=== PATIENT | female | born 1980 | race Caucasian/White ===

== ENCOUNTER 2021-10-12 17:13 | Inpatient (IN) ==
[2021-10-12] MEDS ORDERED: Lactated Ringers 1000 ml BAG 1,000 ML IV ONE (17:31)
[2021-10-12 18:10] LABS: Hematocrit 38 % (35-47); Hemoglobin 12.7 g/dL (12.0-16.0); Mean Corpuscular HGB Conc 33 g/dL (31-36); Mean Corpuscular Hemoglobin 28 pg (27-31); Mean Corpuscular Volume 85 fL (80-97); Mean Platelet Volume 8.1 fL (7.4-10.4); Platelet Count 187 10^3/uL (150-450); Red Blood Count 4.49 10^6 /uL (3.70-4.87); Red Cell Distribution Width 14 % (10-15)
[2021-10-12 18:13] LABS: ABS Lymphocytes 0.7 10^3/ul (1.0-4.8); ABS Monocytes 0.6 10^3/ul (0-0.8); ABS Neutrophils 7.6 10^3/ul (1.5-7.7); Eosinophil % 0.2 %; Lymphocyte % 8.2 %
[2021-10-12 18:48] LABS: Albumin 3.9 g/dL (3.2-5.2); Calcium 9.2 mg/dL (8.6-10.3); Globulin 2.6 g/dL (2-4); Total Protein 6.5 g/dL (6.4-8.9); eGFR CKD-EPI 86.9 (>60)
[2021-10-12 18:49] LABS: Albumin/Globulin Ratio 1.5 (1-3); C Reactive Protein 287.75 mg/L (<8.01); Total Bilirubin 0.3 mg/dL (0.2-1.0)
[2021-10-12] MEDS ORDERED: Albuterol/Ipratropium NEB.SOL (2.5/0.5 MG) 3 ML NEB.SOLN INH ONE ×2 (19:27→20:51)
[2021-10-12] MEDS ORDERED: Levofloxacin 500 MG IVPREMIX 500 MG/100 ML BAG IVPB ONE (19:46)
[2021-10-12] MEDS ORDERED: cefTRIAXone 1 gm/50 mL D5W 1 GM/50 ML BAG IV ONE (19:46)
[2021-10-12] MEDS ORDERED: Dexamethasone IV 10 MG in NS 0.9% 50 ML 50 ML IVPB ONE (20:49)
[2021-10-12] MEDS ORDERED: Albuterol HFA INHALER 8 gm MDI INH ONE (20:49)
[2021-10-12 21:48] LABS: Urine Appearance Cloudy; Urine Bilirubin Negative (Negative); Urine Blood 3+ (Negative); Urine Color Yellow; Urine Glucose Negative (Negative); Urine Ketones Negative (Negative); Urine Nitrite Negative (Negative); Urine Protein 2+(100 mg/dL) (Negative); Urine Specific Gravity 1.009 (1.002-1.030); Urine Urobilinogen Negative (Negative)
[2021-10-12 21:51] LABS: Urine Bacteria Absent (Absent); Urine Red Blood Cell 3+(>10/hpf) (Absent); Urine Squamous Epithelial Cell Present (Absent); Urine White Blood Cell 3+(>20/hpf) (Absent)
[2021-10-12] MEDS ORDERED: Iohexol 350 (CONTRAST) 500 ML MDV IV ONE (22:20)
[2021-10-12 22:31] LABS: CKMB ng/mL 2.4 ng/mL (0.6-6.3)
[2021-10-12 22:58] LABS: High Sensitivity Troponin 1 Hr 8 pg/mL (<15)
[2021-10-13] MEDS ORDERED: Lactated Ringers 1000 ml BAG 1,000 ML IV ONE (00:24)
[2021-10-13] MEDS ORDERED: DOXYcycline IV 100 MG in NS 0.9% 250 ML IVPB ONE (01:00)
[2021-10-13 05:41] LABS: Hematocrit 37 % (35-47); Mean Corpuscular HGB Conc 33 g/dL (31-36); Mean Corpuscular Hemoglobin 28 pg (27-31); Mean Corpuscular Volume 85 fL (80-97); Mean Platelet Volume 8.2 fL (7.4-10.4); Platelet Count 176 10^3/uL (150-450); Red Blood Count 4.32 10^6 /uL (3.70-4.87); Red Cell Distribution Width 14 % (10-15); White Blood Count 7.1 10^3/uL (3.5-10.8)
[2021-10-13 06:00] LABS: ABS Lymphocytes 0.9 10^3/ul (1.0-4.8); ABS Monocytes 0.4 10^3/ul (0-0.8); ABS Neutrophils 5.7 10^3/ul (1.5-7.7); Eosinophil % 0.1 %; Lymphocyte % 12.8 %; Nucleated Red Blood Cells % 0.1
[2021-10-13] MEDS ORDERED: methylPREDNISolone SOD SUCC 125 mg 2 ML VIAL IV SCH (06:00)
[2021-10-13 06:22] LABS: Calcium 8.2 mg/dL (8.6-10.3); eGFR CKD-EPI 117.5 (>60)
[2021-10-13 06:37] LABS: HIV 4th Generation Nonreactive (Nonreactive)
[2021-10-13 07:16] LABS: C Reactive Protein 188.32 mg/L (<8.01)
[2021-10-13] MEDS ORDERED: DULoxetine DR 60 mg CAP PO SCH (09:00)
[2021-10-13] MEDS ORDERED: DULoxetine DR 60 mg CAP PO ONE (09:00)
[2021-10-13] MEDS ORDERED: Guaifenesin/Pseudo 600/60(NF) TAB (Mucinex D) PO PRN (11:36)
[2021-10-13] MEDS ORDERED: DOXYCYCLINE 100 MG IVPB ONE (13:00)
[2021-10-13] MEDS ORDERED: [UNRECOGNIZED DRUG - OTHER] IVPB ONE (13:00)
[2021-10-13 15:52] LABS: PCO2 Arterial 36 mmHg (35-45); PO2 Arterial 69 mmHg (80-100)
[2021-10-13] MEDS: cefTRIAXone 1 gm/50 mL D5W 1 GM/50 ML BAG IV SCH (17:36)
[2021-10-13] MEDS ORDERED: cefTRIAXone VIAL 1,000 MG VIAL IM SCH (19:00)
[2021-10-13] MEDS ORDERED: cefTRIAXone 1 gm/50 mL D5W 1 GM/50 ML BAG IV SCH (21:00)
[2021-10-14] MEDS: DOXYcycline 100 MG in NS 0.9% 250 ml 250 ML IVPB SCH ×2 (01:09→13:24)
[2021-10-14 05:18] LABS: Urine Benzodiazepine Screen None Detected (None Detect); Urine Cannabinoids Screen None Detected (None Detect); Urine Opiates Screen None Detected (None Detect)
[2021-10-14 05:20] LABS: Hematocrit 38 % (35-47); Hemoglobin 12.6 g/dL (12.0-16.0); Mean Corpuscular HGB Conc 33 g/dL (31-36); Mean Corpuscular Hemoglobin 28 pg (27-31); Mean Corpuscular Volume 85 fL (80-97); Mean Platelet Volume 7.6 fL (7.4-10.4); Platelet Count 192 10^3/uL (150-450); Red Blood Count 4.51 10^6 /uL (3.70-4.87); Red Cell Distribution Width 14 % (10-15); White Blood Count 12.7 10^3/uL (3.5-10.8)
[2021-10-14] MEDS: Albuterol HFA INHALER 8 gm MDI INH PRN (05:28)
[2021-10-14 05:43] LABS: ABS Lymphocytes 1.4 10^3/ul (1.0-4.8); ABS Monocytes 1.3 10^3/ul (0-0.8)
[2021-10-14 06:17] LABS: C Reactive Protein 94.42 mg/L (<8.01); Calcium 8.5 mg/dL (8.6-10.3); Magnesium 1.9 mg/dL (1.9-2.7); Potassium 3.3 mmol/L (3.5-5.0); eGFR CKD-EPI 112.8 (>60)
[2021-10-14] MEDS ORDERED: Potassium Chlor 20 meq TAB.ER PO ONE (07:03)
[2021-10-14] MEDS: DULoxetine DR 60 mg CAP PO SCH (07:59)
[2021-10-14] MEDS ORDERED: Lactated Ringers 1000 ml BAG 1,000 ML IV ONE (09:14)
[2021-10-14] MEDS: cefTRIAXone 1 gm/50 mL D5W 1 GM/50 ML BAG IV SCH (18:05)
[2021-10-15] MEDS: DOXYcycline 100 MG in NS 0.9% 250 ml 250 ML IVPB SCH ×2 (01:12→12:54)
[2021-10-15 04:32] LABS: Hematocrit 37 % (35-47); Hemoglobin 12.3 g/dL (12.0-16.0); Mean Corpuscular HGB Conc 34 g/dL (31-36); Mean Corpuscular Hemoglobin 29 pg (27-31); Mean Corpuscular Volume 84 fL (80-97); Mean Platelet Volume 7.9 fL (7.4-10.4); Platelet Count 217 10^3/uL (150-450); Red Blood Count 4.32 10^6 /uL (3.70-4.87); Red Cell Distribution Width 14 % (10-15); White Blood Count 9.3 10^3/uL (3.5-10.8)
[2021-10-15 04:40] LABS: ABS Eosinophils 0.1 10^3/ul (0-0.6); ABS Lymphocytes 1.7 10^3/ul (1.0-4.8); ABS Neutrophils 6.5 10^3/ul (1.5-7.7); Eosinophil % 0.6 %; Lymphocyte % 18.2 %
[2021-10-15 05:10] LABS: Blood Urea Nitrogen 16 mg/dL (6-24); CO2 Carbon Dioxide 25 mmol/L (22-32); Calcium 8.5 mg/dL (8.6-10.3); Chloride 108 mmol/L (101-111); Glucose 99 mg/dL (70-100); Magnesium 1.9 mg/dL (1.9-2.7); Sodium 139 mmol/L (135-145); eGFR CKD-EPI 115.2 (>60)
[2021-10-15 05:14] LABS: Anion Gap 6 mmol/L (2-11)
[2021-10-15] MEDS ORDERED: Magnesium Sulfate IV 1GM/100ML 1 GM/100 ML BAG IV ONE (07:26)
[2021-10-15] MEDS: Albuterol HFA INHALER 8 gm MDI INH PRN (08:04)
[2021-10-15] MEDS: DULoxetine DR 60 mg CAP PO SCH (09:02)
[2021-10-15] MEDS: cefTRIAXone 1 gm/50 mL D5W 1 GM/50 ML BAG IV SCH (18:27)
[2021-10-15 22:56] LABS: Phosphorus 3.4 mg/dL (2.5-5.0); Potassium 3.4 mmol/L (3.5-5.0)
[2021-10-16] MEDS: DOXYcycline 100 MG in NS 0.9% 250 ml 250 ML IVPB SCH (01:28)
[2021-10-16 05:05] LABS: Hematocrit 40 % (35-47); Hemoglobin 13.3 g/dL (12.0-16.0); Mean Corpuscular HGB Conc 33 g/dL (31-36); Mean Corpuscular Hemoglobin 28 pg (27-31); Mean Corpuscular Volume 85 fL (80-97); Mean Platelet Volume 7.4 fL (7.4-10.4); Platelet Count 232 10^3/uL (150-450); Red Blood Count 4.71 10^6 /uL (3.70-4.87); Red Cell Distribution Width 14 % (10-15); White Blood Count 9.1 10^3/uL (3.5-10.8)
[2021-10-16 05:53] LABS: Calcium 8.7 mg/dL (8.6-10.3); Magnesium 2.2 mg/dL (1.9-2.7); Potassium 3.4 mmol/L (3.5-5.0); eGFR CKD-EPI 116.6 (>60)
[2021-10-16 07:22] LABS: ABS Eosinophils 0.1 10^3/ul (0-0.6); ABS Lymphocytes 1.8 10^3/ul (1.0-4.8); ABS Neutrophils 6.1 10^3/ul (1.5-7.7); Eosinophil % 0.9 %; Lymphocyte % 20.1 %; Nucleated Red Blood Cells % 0.1
[2021-10-16] MEDS ORDERED: Potassium Chlor 20 meq TAB.ER PO ONE (07:47)
[2021-10-16] MEDS: DULoxetine DR 60 mg CAP PO SCH (07:55)
[2021-10-16 13:42] VITALS: BP 133/93
[2021-10-17 00:06] LABS: Fungitell Qualitative Result Negative (Negative); Fungitell Quantitative Value 32 pg/mL (<60 pg/mL)
== END 2021-10-16 13:40 | disposition home or self-care (01) | DRG 871 ==
LOC: ED 17:13 → SUATTDRO 10-13 00:20 → EDHOLD 10-13 00:20 → ICU 10-13 17:03
PROVIDERS: ADMIT Internal Medicine; ATTEND Surgery Surgical Critical Care

== ENCOUNTER 2023-07-20 15:39 | Observation (INO) ==
[2023-07-20 17:01] LABS: ABS Lymphocytes 1.9 10^3/uL (1.0-4.8); ABS Monocytes 0.7 10^3/uL (0.0-0.9); ABS Neutrophils 4.5 10^3/uL (1.5-7.6); Eosinophil % 0.4 %; Hematocrit 41.8 % (35-45); Lymphocyte % 26.3 %; Mean Corpuscular Hemoglobin 28.9 pg (27-33); Mean Corpuscular Hgb Conc 33.4 g/dL (31-36); Mean Corpuscular Volume 86.5 fL (80-97); Mean Platelet Volume 8.5 fL (7.5-11.2); Platelet Count 165 10^3/uL (150-450); Red Blood Count 4.84 10^6/uL (3.63-4.92); Red Cell Distribution Width 13.6 % (12-17)
[2023-07-20 17:02] LABS: Urine Appearance Clear; Urine Bilirubin Negative (Negative); Urine Blood Negative (Negative); Urine Color Light-Yellow; Urine Glucose Negative (Negative); Urine Ketones Negative (Negative); Urine Nitrite Negative (Negative); Urine Protein Negative (Negative); Urine Specific Gravity 1.015 (1.002-1.030); Urine Urobilinogen Negative (Negative)
[2023-07-20 17:04] LABS: Urine Bacteria Absent /HPF (Absent); Urine Red Blood Cell Absent /HPF (0-Trace); Urine Squamous Epithelial Cell Present /HPF (Absent); Urine White Blood Cell 2+(11-20/hpf) /HPF (0-Trace)
[2023-07-20 17:31] LABS: Urine Benzodiazepine Screen None Detected (None Detect); Urine Cannabinoids Screen None Detected (None Detect); Urine Opiates Screen None Detected (None Detect)
[2023-07-20 17:47] LABS: ALT 42 U/L (7-52); Acetaminophen < 15 mcg/mL; Albumin 4.2 g/dL (3.2-5.2); Albumin/Globulin Ratio 1.7 (1-3); Alcohol, S < 13 mg/dL (<13); Alkaline Phosphatase 36 U/L (35-149); Blood Urea Nitrogen 13 mg/dL (6-24); CO2 Carbon Dioxide 27 mmol/L (22-32); Calcium 9.3 mg/dL (8.6-10.3); Chloride 101 mmol/L (101-111); Creatinine, Serum 0.82 mg/dL (0.51-0.95); Globulin 2.5 g/dL (2-4); Glucose 78 mg/dL (70-100); HCG Pregnancy < 0.60 mIU/mL; Salicylate < 2.50 mg/dL (<30); Sodium 136 mmol/L (135-145); Total Bilirubin 0.3 mg/dL (0.2-1.0); Total Protein 6.7 g/dL (6.4-8.9); eGFR CKD-EPI 92.7 (>60)
[2023-07-20 17:53] LABS: Anion Gap 8 mmol/L (2-16)
[2023-07-20 18:05] LABS: TSH Ultra Thyroid Stim Horm 2.47 mcIU/mL (0.34-5.60)
[2023-07-20] MEDS ORDERED: LORazepam 2 mg VIAL 1 ml IV PUSH PRN (18:19)
[2023-07-20] MEDS ORDERED: Lorazepam PYXIS KEY PRN (18:19)
[2023-07-20] MEDS: Magnesium Sulfate 2 gm BAG 2 GM/50 ML BAG IVPB ONE (18:45)
[2023-07-20] MEDS: Charcoal ACTIVATED 50 GM/240 ML BTL PO ONE (18:46)
[2023-07-20] MEDS: Lactated Ringers 1000 ml BAG 1,000 ML IV ONE (20:38)
[2023-07-20 22:26] LABS: Magnesium 2.7 mg/dL (1.9-2.7); Potassium Redraw 4.1 mmol/L (3.5-5.0)
[2023-07-21 06:58] LABS: ABS Basophils 0.1 10^3/uL (0.0-0.1); ABS Eosinophils 0.1 10^3/uL (0.0-0.5); ABS Lymphocytes 1.6 10^3/uL (1.0-4.8); ABS Monocytes 0.5 10^3/uL (0.0-0.9); ABS Neutrophils 5.4 10^3/uL (1.5-7.6); ABS Nucleated RBC 0.01 10^3/ul; Eosinophil % 0.8 %; Hemoglobin 13.3 g/dL (11.5-14.3); Lymphocyte % 21.2 %; Mean Corpuscular Hgb Conc 33.3 g/dL (31-36); Mean Platelet Volume 8.4 fL (7.5-11.2); Nucleated Red Blood Cells % 0.1 %/100WBC (0.0-0.8); Platelet Count 161 10^3/uL (150-450); Red Blood Count 4.59 10^6/uL (3.63-4.92); Red Cell Distribution Width 13.4 % (12-17); White Blood Count 7.8 10^3/uL (3.8-11.8)
[2023-07-21 08:02] LABS: Albumin/Globulin Ratio 1.8 (1-3); Calcium 9.3 mg/dL (8.6-10.3); Creatinine, Serum 0.86 mg/dL (0.51-0.95); Globulin 2.2 g/dL (2-4); Magnesium 2.2 mg/dL (1.9-2.7); Potassium 4.2 mmol/L (3.5-5.0); Total Bilirubin 0.4 mg/dL (0.2-1.0); Total Protein 6.2 g/dL (6.4-8.9); eGFR CKD-EPI 87.5 (>60)
[2023-07-21 16:13] VITALS: BP 132/89
== END 2023-07-21 16:41 | disposition home or self-care (01) ==
LOC: ED 15:39 → EDHOLD 15:39
PROVIDERS: ADMIT Student in an Organized Health Care Education/Training Program; ATTEND Student in an Organized Health Care Education/Training Program